=== PATIENT | male | born 1990 | race Caucasian/White ===

== ENCOUNTER 2018-01-08 21:11 | Emergency (ER) | payer MEDICAID, OTHER ==
[~2018-01-08] VITALS: Ht 177.8 cm; Wt 90.7 kg
[2018-01-08 22:27] VITALS: BP 151/75
--- NOTE | 2018-01-08 22:34 | ER.PDOC ---
General Chief Complaint: Extremities Stated Complaint: L ANKLE PAIN Time seen by MD: 22:24 Source: patient Exam Limitations: no limitations History of Present Illness Initial Comments Inversion stress L ankle. Pain and swelling laterally. Onset: just prior to arrival Where: street Context: twist Severity: moderate Associated Symptoms: unable to bear weight Past Medical History Medical History: no pertinent history Surgical History: no surgical history Social History Smoking: non-smoker Alcohol Use: occassionally Drug Use: marijuana Reviewed Nursing Reviewed: Vital Signs, Abn. Noted, Nursing Assessment Review of Systems Constitutional: no symptoms reported Musculoskeletal: see HPI Skin: no symptoms reported All Other Systems: Reviewed and Negative Physical Exam General Appearance: Alert, Mild Distress Foot: nml inspection, non-tender Ankle: tenderness, swelling (lat perimalleolar area. No deformity. No proximal tender or swelling.) Knee: nml inspection Thigh/Hip: nml inspection Gait: unable to bear weight Neuro/Vasc/Tendon: sensation nml, motor nml, no vascular compromise Skin: warm/dry Progress Progress xray ankle neg for fx. Orthoglas posterior ankle splint applied. Good distal NVS and ROM pre and post splint harris. Departure Time of Disposition: 23:25 Disposition: 01 HOME, SELF-CARE Impression: Primary Impression: Ankle sprain Condition: Stable Patient Instructions: Ankle Sprain Referrals: PCP,UNKNOWN (PCP) PRIMARY CARE PROVIDER ROBI ESTRELLA MD Additional Instructions: Keep splint in place for 7 to 10 days. Gradual weight bearing as tolerated. Return if worse. Duration or Time Spent with Pa: 40m LACI BRYSON DO January 08, 2018 22:34
--- NOTE | 2018-01-08 22:56 | DIREP ---
PROCEDURE:XRAY ANKLE MIN 3VWS-LT COMPARISON:None. INDICATIONS:ROLLED ANKLE FINDINGS: BONES:Normal. JOINTS:Normal. SOFT TISSUES:Moderate soft tissue swelling laterally. OTHER:No additional findings. CONCLUSION:Soft tissue swelling laterally. No evidence acute fracture/dislocation Dictated by: Lino Seymour M.D. on 01/08/2018 at 10:54 PM
[2018-01-08 23:55] VITALS: BP 135/71
--- NOTE | 2018-01-08 23:59 | NUR ---
Discharge: D/C Instructions given. Patient refused Motrin presecription as it interferes with home medications. EDP notified, orders for ES Tylenol. Patient offered wheelchair for DC; refused and requested crutches. No further questions at this time.
[2018-01-09 00:09] VITALS: BP 135/71
== END 2018-01-08 23:59 | disposition home or self-care (01) ==
LOC: ER 21:11
DX: S93.402A Sprain of unspecified ligament of left ankle, initial encounter (principal); F12.10 Cannabis abuse, uncomplicated; X50.1XXA Overexertion from prolonged static or awkward postures, initial encounter; Y93.89 Activity, other specified; Y92.410 Unspecified street and highway as the place of occurrence of the external cause; Y99.8 Other external cause status
CPT/HCPCS: 29515; 99284; 73610-LT